=== PATIENT | male | born 1985 | race Caucasian/White ===

== ENCOUNTER 2018-06-01 02:25 | Emergency (ER) | payer OTHER ==
[2018-06-01] MEDS: MINERAL OIL 30ML CUP PO (04:15)
[2018-06-01] MEDS: HYDROCODONE/APAP (5/325) TAB PO (05:45)
[2018-06-01] MEDS: CIPROFLOXACIN HCL OTIC DROP 0.25 ML RIGHT EAR (05:45)
== END 2018-06-01 05:49 | disposition home or self-care (01) ==
LOC: FTE 02:25
DX: S00.461A Insect bite (nonvenomous) of right ear, initial encounter (principal); T16.1XXA Foreign body in right ear, initial encounter; W57.XXXA Bitten or stung by nonvenomous insect and other nonvenomous arthropods, initial encounter; Y92.9 Unspecified place or not applicable
CPT/HCPCS: 30300; 99284-25

== ENCOUNTER 2018-06-01 19:15 | Emergency (ER) | payer OTHER | END 2018-06-01 22:46 | disposition home or self-care (01) | LOC: FTE 22:46 | DX: T16.1XXD Foreign body in right ear, subsequent encounter (principal); X58.XXXD Exposure to other specified factors, subsequent encounter | CPT/HCPCS: 69200; 99283-25 ==